=== PATIENT | female | born 1950 | race Caucasian/White ===

== ENCOUNTER 2017-11-12 08:22 | Day surgery (SDC) | payer MEDICARE, BC ==
[~2017-11-12] VITALS: Ht 175.3 cm; Wt 65.0 kg
[2017-11-12 08:30] VITALS: BP 142/74
[2017-11-12] MEDS ORDERED: NO HOME MEDS (08:38)
[2017-11-12] MEDS ORDERED: fentaNYL/PF 50MCG/1 ML 2ML syringe ONE (08:55)
[2017-11-12] MEDS ORDERED: MIDAZolam 5mg/5ml vial ONE (08:55)
[2017-11-12 09:34] VITALS: BP 134/70
[2017-11-12 09:44] VITALS: BP 136/75
[2017-11-12 09:54] VITALS: BP 129/81
[2017-11-12 10:04] VITALS: BP 132/75
== END 2017-11-12 10:15 | disposition home or self-care (01) ==
LOC: GI LAB 08:22
PROVIDERS: ATTEND Internal Medicine Gastroenterology
DX: Z12.11 Encounter for screening for malignant neoplasm of colon (principal); K63.5 Polyp of colon; Z72.89 Other problems related to lifestyle; Z85.820 Personal history of malignant melanoma of skin; Z98.890 Other specified postprocedural states; Z80.0 Family history of malignant neoplasm of digestive organs
CPT/HCPCS: 45380; 45381; 45385; G0500; J2250; J3010; J7030; 88305; A4620